=== PATIENT | male | born 1980 | race Caucasian/White ===

== ENCOUNTER 2016-09-11 22:15 | Emergency (ER) | payer SELFPAY ==
[~2016-09-11] VITALS: Ht 175.3 cm; Wt 74.0 kg
[2016-09-11 22:48] VITALS: BP 119/84; PULSE 92; RESP 18; TEMP 98.8; O2SAT 98
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
[2016-09-12 01:12] VITALS: BP 122/78; PULSE 84; RESP 18; O2SAT 97
== END 2016-09-12 01:14 | disposition home or self-care (01) ==
LOC: PHED 22:15
DX: S61.011A Laceration without foreign body of right thumb without damage to nail, initial encounter (principal); F41.9 Anxiety disorder, unspecified; F17.210 Nicotine dependence, cigarettes, uncomplicated; F11.20 Opioid dependence, uncomplicated; X78.0XXA Intentional self-harm by sharp glass, initial encounter; Y93.9 Activity, unspecified; Y92.9 Unspecified place or not applicable; Y99.9 Unspecified external cause status
CPT/HCPCS: 12004

== ENCOUNTER 2016-11-20 06:43 | Emergency (ER) | payer OTHER ==
[~2016-11-20] VITALS: Ht 182.9 cm; Wt 84.0 kg
[2016-11-20 06:57] VITALS: BP 104/57; PULSE 82; RESP 16; TEMP 97.9; O2SAT 99
[2016-11-20] MEDS ORDERED: SODIUM CHLOR 0.9% 1000 ML INJ 1,000 ML IV ONE (07:01)
[2016-11-20] MEDS ORDERED: SODIUM CHLORIDE 0.9% FLUSH 10 ML FLUSH IVF PRN (07:15)
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
[2016-11-20 07:31] LABS: AUTOMATED NEUTROPHIL # 4.1 TH/MM3 (1.8-7.7); BASOPHIL % 0.6 % (0.0-2.0); EOSINOPHIL # 0.3 TH/MM3 (0-0.4); EOSINOPHIL % 4.1 % (0.0-4.0); HEMO FLAGS DIFF FINAL; LYMPHOCYTE # 1.5 TH/MM3 (1.0-4.8); MEAN CORPUSCULAR HGB CONC 33.7 % (32.0-36.0); MONO % 9.6 % (0.0-8.0); NEUT % 62.7 % (16.0-70.0); PLATELET COUNT 239 TH/MM3 (150-450); RED BLOOD COUNT 4.61 MIL/MM3 (4.50-5.90); RED CELL DISTRIBUTION WIDTH 12.7 % (11.6-17.2); WHITE BLOOD COUNT 6.5 TH/MM3 (4.0-11.0)
[2016-11-20 07:59] VITALS: RESP 16; O2SAT 99
[2016-11-20 08:05] LABS: ACETAMINOPHEN LESS THAN 2.0 MCG/ML (10.0-30.0); ANION GAP 7 MEQ/L (5-15); BICARBONATE 25.8 MEQ/L (21.0-32.0); BLOOD UREA NITROGEN 13 MG/DL (7-18); CHLORIDE 105 MEQ/L (98-107); GLOMERULAR FILTRATION RATE 94 ML/MIN (>89); POTASSIUM 3.2 MEQ/L (3.5-5.1); SODIUM (NA) 138 MEQ/L (136-145)
--- NOTE | 2016-11-20 08:24 | RADRPT ---
EXAM DATE/TIME: 11/20/2016 07:47 [place] COMPARISON: No previous studies available for comparison. INDICATIONS : Altered mental status, unresponsive. RADIATION DOSE: 56.35 CTDIvol (mGy) MEDICAL HISTORY : Non-responsive. SURGICAL HISTORY : Non-responsive. ENCOUNTER: Initial ACUITY: 1 day PAIN SCALE: Non-responsive LOCATION: cranial TECHNIQUE: Multiple contiguous axial images were obtained of the head. Using automated exposure control and adj ustment of the mA and/or kV according to patient size, radiation dose was kept as low as reasonably a chievable to obtain optimal diagnostic quality images. FINDINGS: CEREBRUM: The ventricles are normal for age. No evidence of midline shift, mass lesion, hemorrhage or acute in farction. No extra-axial fluid collections are seen. POSTERIOR FOSSA: The cerebellum and brainstem are intact. The 4th ventricle is midline. The cerebellopontine angle i s unremarkable. EXTRACRANIAL: The visualized portion of the orbits is intact. SKULL: The calvaria is intact. No evidence of skull fracture. CONCLUSION: No acute intracranial findings. Romeo Echavarria MD on November 20, 2016 at 8:21 Board Certified Radiologist. This report was verified electronically.
[2016-11-20 08:43] LABS: AMPHETAMINE, URINE POS (NEG); BARBITURATES, URINE NEG (NEG); COCAINE, URINE NEG (NEG)
[2016-11-20 09:14] VITALS: BP 131/74; PULSE 82; RESP 16; O2SAT 98
[2016-11-20] MEDS ORDERED: NALOXONE HCL 0.4 MG/ML AMP IV PUSH ONE (09:45)
--- NOTE | 2016-11-20 12:48 | EKG ---
Date Performed: 11/20/2016 Time Performed: 08:09:56 PTAGE: 36 years EKG: Sinus rhythm PROLONGED QT INTERVAL ABNORMAL ECG PREVIOUS TRACING : 10/20/2014 18.00 Compared to prior tracing no significant change DOCTOR: Jason Lu Interpretating Date/Time 11/20/2016 12:46:28
== END 2016-11-20 10:21 ==
LOC: NEPC 06:43
DX: F19.10 Other psychoactive substance abuse, uncomplicated (principal); G89.29 Other chronic pain; R94.31 Abnormal electrocardiogram [ECG] [EKG]
CPT/HCPCS: 70450; 80048; 80307; 85025; 93005; 96361; 96374; 99285; J2310; J7030